=== PATIENT | male | born 1980 | race Caucasian/White ===

== ENCOUNTER 2018-09-10 12:40 | Emergency (ER) | payer BC ==
[~2018-09-10] VITALS: Ht 185.4 cm; Wt 115.7 kg
[~2018-09-10 12:40] MED LIST: HYDR-1421
[2018-09-10 13:36] VITALS: BP 143/86
[2018-09-10] MEDS ORDERED: HYDROcodone-ACET 5/325MG TAB PO ONE (13:45)
[2018-09-10] MEDS ORDERED: KETOROLAC TROMETH 60MG/2ML VIAL IM ONE (13:45)
== END 2018-09-10 14:28 | disposition home or self-care (01) ==
LOC: ER 12:40
DX: S62.356A Nondisplaced fracture of shaft of fifth metacarpal bone, right hand, initial encounter for closed fracture (principal); I10 Essential (primary) hypertension; W23.0XXA Caught, crushed, jammed, or pinched between moving objects, initial encounter; Y93.89 Activity, other specified; Y99.8 Other external cause status; Y92.89 Other specified places as the place of occurrence of the external cause
CPT/HCPCS: 29125; 73100; 73120; 96372; 99283; J1885